=== PATIENT | female | born 1965 | race Caucasian/White ===

== ENCOUNTER → 2016-11-02 18:50 | Outpatient (CLI) | payer OTHER | END | disposition home or self-care (01) | LOC: D.MAMMO 13:00 | DX: Z12.31 Encounter for screening mammogram for malignant neoplasm of breast (principal) ==

== ENCOUNTER 2019-07-12 11:40 | Inpatient (IN) | payer BC ==
[~2019-07-12] VITALS: Ht 157.5 cm; Wt 75.0 kg
[2019-07-12 12:02] VITALS: BP 127/88
[2019-07-12 12:17] LABS: BASOPHILS 0.3 % (0-2); CALC OSMOLALITY 278 mosm/kg (275-300); CARBON DIOXIDE 28.1 mmol/L (21.0-32.0); CHLORIDE - SERUM 103 mmol/L (98-107); CREATININE - SERUM 0.9 mg/dL (0.6-1.3); EOSINOPHILS 1.3 % (0-7); GLUCOSE 98 mg/dL (74-106); HEMATOCRIT 41.9 % (36.0-48.0); HEMOGLOBIN 13.7 g/dL (12-16); IMMATURE GRANULOCYTES 1.4 % (0-5); LYMPHOCYTES 11.5 % (15-50); MCH 32.2 pg (26.0-34.0); MCHC 32.7 g/dL (31.0-37.0); MCV 98.4 fL (80.0-100.0); MEAN PLATELET VOLUME 8.4 fL (7.4-10.4); MONOCYTES 9.8 % (2-11); NEUTROPHILS 75.7 % (40-80); PLATELET COUNT 794 10x3/uL (130-400); POTASSIUM - SERUM 4.2 mmol/L (3.5-5.1); RBC 4.26 10x6/uL (4.00-5.40); RDW 12.5 % (11.5-14.5); SODIUM 140 mmol/L (136-145); UREA NITROGEN 13 mg/dL (7-18); eGFR NON AFRICAN AMERICAN 69 mL/min (90-120)
[2019-07-12 12:20] LABS: APTT 29.5 SECONDS (22.8-39.4); INR 0.97 (0.85-1.17); PROTIME 12.8 SECONDS (11.6-15.0)
[2019-07-12 12:34] LABS: ALBUMIN 3.1 g/dL (3.4-5.0); ALKALINE PHOSPHATASE 122 U/L (46-116); ALT (SGPT) 42 U/L (10-68); BILIRUBIN - TOTAL 0.15 mg/dL (0.2-1.3); CKMB 0.5 U/L (0.0-3.6); CREATINE KINASE 97 UL (21-215); PRO BNP 18 pg/mL (0-125); PROTEIN - SERUM 7.8 g/dL (6.4-8.2)
[2019-07-12 12:35] LABS: TROPONIN-I < 0.017 ng/mL (0.000-0.060)
--- NOTE | 2019-07-12 14:02 | NUR ---
BEFORE INITIATING ABXS CKD WITH LAB, NO BC'S DRAWN. SPOKE WITH ANKIT OWENS AND BC'S NEEDED. LAB NOTIFIED. ALSO NOTED ZOSYN 2.25 AND 3/375 ORDERED. VERIFIED WITH ANKIT OWENS AND ZOSYN 3.375 IS CORRECT IITIAL DOSE.
[2019-07-12 14:05] VITALS: BP 111/77
--- NOTE | 2019-07-12 14:21 | NUR ---
BC'S DRAWN X2 PER LAB THEN ZOSYN 3.375 INITIATED
[2019-07-12] MEDS ORDERED: FENOFIBRATE160 MG PO (14:57)
[2019-07-12] MEDS ORDERED: TRIAMTERENE-HC1 EAC3 PO (14:58)
[2019-07-12] MEDS ORDERED: PRAVACHOL20 MG PO (14:58)
--- NOTE | 2019-07-12 15:16 | NUR ---
REPORT CALLED TO JUAN RHODES
--- NOTE | 2019-07-12 15:23 | NUR ---
TRANSPORTED TO ROOM #1210 CONDITION STABLE
[2019-07-12 15:24] VITALS: BP 110/76
--- NOTE | 2019-07-12 15:29 | MORECARE ---
CASE MANAGEMENT DISCHARGE SUMMARY PATIENT: LG GA ROLANDO UNIT: [id number] ADM DATE: 07/12/19 AGE: 53 : 63 SEX: F ROOM/BED: D.1210 AUTHOR: CHILANGO CADET PHYSICIAN: REFERRING PHYSICIAN: EL CROUCH MD DATE OF SERVICE: 07/12/19 Discharge Plan Patient Name: LG GA [facility] [facility] 1965 Planned Disposition: Anticipated Discharge Date: Discharge Date: Expected LOS: Initial Reviewer: [email or web address] Initial Review Date: 07/12/2019 Generated: 07/12/19 4:29 pm DCPIA - Discharge Planning Initial Assessment Updated by [email or web address]: Dalia Leiva on 07/12/19 3:25 pm * Is the patient Alert and Oriented? Yes * PCP Telma Gonzalez * [facility] * Preadmission Environment Home with Family * ADLs Independent * Equipment None * Other Equipment NA * List name and contact numbers for known caregivers / representatives who currently or will assist patient after discharge: Mayco Ga (spouse) [phone] * Verbal permission to speak to the caregivers and representatives has been obtained from the patient. Yes * Community resources currently utilized None * Please name any agencies selected above. NA * Additional services required to return to the preadmission environment? No * Can the patient safely return to the preadmission environment? Yes * Has this patient been hospitalized within the prior 30 days at any hospital? No Patient Name: LG GA Page [id number] at 1529 All edits/amendments must be made on the electronic document DICTATION DATE: 07/12/19 1529 ANIMAL CARE TECHNICIAN: JORDEN 07/12/19 1529 RPT#: [id number] DC DATE: STATUS: ADM IN [facility] [address] [place] [address] END OF REPORT
--- NOTE | 2019-07-12 15:43 | MORECARE ---
CASE MANAGEMENT DISCHARGE SUMMARY PATIENT: LG GA UNIT: [id number] ADM DATE: 07/12/19 AGE: 53 : 63 SEX: F ROOM/BED: D.1210 AUTHOR: CHILANGO CADET PHYSICIAN: REFERRING PHYSICIAN: EL CROUCH MD DATE OF SERVICE: 07/12/19 Discharge Plan Patient Name: LG GA Facility: [facility]:[place] : 1965 Planned Disposition: Anticipated Discharge Date: Discharge Date: Expected LOS: Initial Reviewer: [email or web address] Initial Review Date: 07/12/2019 Generated: 07/12/19 4:43 pm DCP- Discharge Planning Updated by [email or web address]: Dalia Leiva on 07/12/19 2:[address] CM met with patient to discuss initial discharge planning. Patient is in agreement to proceed with the assessment with Mychal Ga (spouse) present. Verified patient's address and telephone number. Patient is alert/oriented. Stairs/steps: PCP: Dr. Leyva. Pharmacy: [facility]. Patient states they have been able to obtain all of their prescribed medications. Patient lives with spouse, Mychal. HHS: DME: Patient gives permission to speak with family members/care givers. Emergency contact: Mychal Ga (spouse) [phone] (home #). Patient is Independent with all ADL's, medication management. CM discussed the availability of HH, Rehab, DME services. Spouse states "she's going home tomorrow and will not need anything. Patient denies the need for additional services at this time and feels safe returning to previous environment. Patient denies being hospitalized within the past 30 days. 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 Transportation at time of discharge: Mychal Ga (spouse). CM will follow and assist with DC needs PRN. DCPIA - Discharge Planning Initial Assessment Updated by [email or web address]: Dalia Leiva on 07/12/19 3:25 pm * Is the patient Alert and Oriented? Yes * PCP Telma Gonzalez * Pharmacy [facility] * Preadmission Environment Home with Family * ADLs Independent * Equipment None * Other Equipment NA * List name and contact numbers for known caregivers / representatives who currently or will assist patient after discharge: Mayco Ga (spouse) [phone] * Verbal permission to speak to the caregivers and representatives has been obtained from the patient. Yes * Community resources currently utilized None * Please name any agencies selected above. NA * Additional services required to return to the preadmission environment? No * Can the patient safely return to the preadmission environment? Yes * Has this patient been hospitalized within the prior 30 days at any hospital? No Last DP export: 07/12/19 2:29 p Patient Name: LG GA Page [id number] at 1543 All edits/amendments must be made on the electronic document DICTATION DATE: 07/12/191542 CORPORATE STRATEGY ASSOCIATE: JORDEN 07/12/191542 RPT#: [id number] DC DATE: STATUS: ADM IN [facility] [address] [place] [address] END OF REPORT
[2019-07-12] MEDS ORDERED: HYDROCODON-ACE1 EA10 PO (15:46)
[2019-07-12 15:58] VITALS: BP 121/83; Ht 157.5 cm; Wt 75.0 kg
--- NOTE | 2019-07-12 19:50 | NUR ---
RECIEVED BEDSIDE REPORT. EVENING ROUNDS COMPLETED. VSS, NO S/S OF RT DISTRESS. RR EVEN AND UNLABORED. PT DENIES COUGH AT THIS TIME. EDUCATE PT ABOUT BREATHING TX. PT VOICED THANKS. PT DENIES ANY FURTHER NEEDS AT THIS TIME. WILL CPOC.
[2019-07-12 20:17] VITALS: BP 128/76
--- NOTE | 2019-07-12 22:00 | NUR ---
ANKIT CRAIG ORDERED MUCINEX AND TESSALON. CALLED AND NOTIFIED FUR DRESSER ABOUT NEW ORDER. AWAITING FUR DRESSER TO COME PULL MEDS. PT RESTING COMFORTABLY IN BED. WILL CTM.
[2019-07-13 00:34] VITALS: BP 119/84
--- NOTE | 2019-07-13 05:05 | NUR ---
UA AND FLU SWAB COLLECTED AND SENT TO LAB.
[2019-07-13 06:40] VITALS: BP 115/78
[2019-07-13 06:43] LABS: BASOPHILS 0.2 % (0-2); EOSINOPHILS 1.4 % (0-7); HEMATOCRIT 39.4 % (36.0-48.0); HEMOGLOBIN 12.9 g/dL (12-16); IMMATURE GRANULOCYTES 1.1 % (0-5); LYMPHOCYTES 16.6 % (15-50); MCH 32.3 pg (26.0-34.0); MCHC 32.7 g/dL (31.0-37.0); MCV 98.5 fL (80.0-100.0); MEAN PLATELET VOLUME 8.3 fL (7.4-10.4); MONOCYTES 9.1 % (2-11); NEUTROPHILS 71.6 % (40-80); PLATELET COUNT 756 10x3/uL (130-400); RDW 12.6 % (11.5-14.5)
[2019-07-13 07:00] LABS: WBC 11.8 10x3/uL (4.8-10.8)
[2019-07-13 07:05] LABS: CALC OSMOLALITY 279 mosm/kg (275-300); CALCIUM 9.2 mg/dL (8.5-10.1); CARBON DIOXIDE 27.2 mmol/L (21.0-32.0); CHLORIDE - SERUM 107 mmol/L (98-107); CREATININE - SERUM 0.7 mg/dL (0.6-1.3); GLUCOSE 105 mg/dL (74-106); PHOSPHOROUS 4.9 mg/dL (2.5-4.9); POTASSIUM - SERUM 3.9 mmol/L (3.5-5.1); SODIUM 141 mmol/L (136-145); UREA NITROGEN 11 mg/dL (7-18); eGFR NON AFRICAN AMERICAN > 90 mL/min (90-120)
--- NOTE | 2019-07-13 07:10 | NUR ---
REPORT RECEIVED FROM SINGING WAITER OR WAITRESS AND PATIENT CARE ASSUMED. PATIENT SITTING UP IN BED AWAKE, ALERT AND ORIENTED X 4. PATIENT IS STABLE AND VSS. WILL CONTINUE WITH PLAN OF CARE. SR UP X 2 BED IN LOW POSITION AND CALL LIGHT IN REACH.
[2019-07-13 07:21] VITALS: BP 122/82
[2019-07-13 07:46] LABS: APPEARANCE CLEAR (CLEAR); BILIRUBIN NEGATIVE (NEGATIVE); COLOR YELLOW (YELLOW); GLUCOSE NEGATIVE (NEGATIVE); KETONE NEGATIVE (NEGATIVE); NITRITE NEGATIVE (NEGATIVE); PROTEIN NEGATIVE (NEGATIVE); SPECIFIC GRAVITY 1.005 (1.005-1.020); UROBILINOGEN NORMAL (NORMAL)
[2019-07-13 10:44] VITALS: BP 114/74
--- NOTE | 2019-07-13 11:58 | NUR ---
PATIENT TOOK SHOWER AND BACK TO BED. PATIENT IS STABLE AND VSS. PATIENT DENIES ANY NEEDS OR PAIN. WILL CONTINUE TO MONITOR. SR UP X 2 BED IN LOW POSITION AND CALL LIGHT IN REACH.
[2019-07-13 14:39] VITALS: BP 113/75
--- NOTE | 2019-07-13 14:53 | NUR ---
PATIENT SITTING UP IN BED WATCHING TV AND VISITING WITH SPOUSE. PATIENT IS STABLE AND VSS. PATIENT DENIES ANY NEEDS OR PAIN. WILL CONTINUE TO MONITOR. SR UP X 2 BED IN LOW POSITION AND CALL LIGHT IN REACH.
--- NOTE | 2019-07-13 19:40 | NUR ---
LYING IN BED. ALERT AND ORIENTED X4. RESP EVEN AND NONLABORED. PROD COUGH WITH YELLOW SPUTUM NOTED. DENIES SOB. DENIES PAIN. AMBULATORY. NS @ 100 MLHR INFUSING IN RT FOREARM WITHOUT DIFF. NO EDEMA NOTED. NO DISTRESS. SR ELEVATED X2. CL IN REACH.
[2019-07-13 20:43] VITALS: BP 112/66
[2019-07-14 00:48] VITALS: BP 124/84
[2019-07-14 05:09] VITALS: BP 125/81
[2019-07-14 06:04] LABS: CALC OSMOLALITY 282 mosm/kg (275-300); CALCIUM 8.6 mg/dL (8.5-10.1); CARBON DIOXIDE 26.9 mmol/L (21.0-32.0); CHLORIDE - SERUM 109 mmol/L (98-107); CREATININE - SERUM 0.7 mg/dL (0.6-1.3); GLUCOSE 104 mg/dL (74-106); MAGNESIUM - SERUM 1.8 mg/dL (1.8-2.4); PHOSPHOROUS 4.7 mg/dL (2.5-4.9); POTASSIUM - SERUM 3.9 mmol/L (3.5-5.1); SODIUM 143 mmol/L (136-145); eGFR NON AFRICAN AMERICAN > 90 mL/min (90-120)
[2019-07-14 06:07] LABS: UREA NITROGEN 7 mg/dL (7-18)
[2019-07-14 07:16] LABS: BASOPHILS 0.2 % (0-2); EOSINOPHILS 1.8 % (0-7); HEMATOCRIT 36.9 % (36.0-48.0); HEMOGLOBIN 11.8 g/dL (12-16); IMMATURE GRANULOCYTES 0.8 % (0-5); LYMPHOCYTES 18.2 % (15-50); MCH 31.9 pg (26.0-34.0); MCV 99.7 fL (80.0-100.0); MEAN PLATELET VOLUME 8.3 fL (7.4-10.4); MONOCYTES 8.2 % (2-11); NEUTROPHILS 70.8 % (40-80); PLATELET COUNT 828 10x3/uL (130-400); RDW 12.8 % (11.5-14.5); WBC 12.1 10x3/uL (4.8-10.8)
[2019-07-14 08:03] VITALS: BP 122/79
--- NOTE | 2019-07-14 08:04 | NUR ---
AWAKE AND ALERT. ORIENTED X3. NO C/O AT THIS TIME. SITTING UP IN BED EATING BREAKFAST. LUNGS ARE CLEAR BUT DIMINISHED IN LOWER LOBES, PRODUCTIVE COUGH REPORTED. SKIN IS INTACT WITHOUT REDNESS. IV TO RIGHT FOREARM IS PATENT WITHOUT REDNESS AT INSERTION SITE. DENIES NEEDS.
--- NOTE | 2019-07-14 09:30 | NUR ---
ATE MOST OF BREAKFAST. SITTING UP IN CHIAR AT BEDSIDE. TOOK AM MEDS WITHOUT DIFFICUTLY. DENIES NEEDS.
[2019-07-14 11:42] VITALS: BP 108/76
[2019-07-14] MEDS ORDERED: AUGMENTIN 875-11 TAB PO (14:22)
--- NOTE | 2019-07-14 17:00 | NUR ---
SPOKE WITH [facility] RE PRESCRIPTIONS. NEW ORDERS TO CALL THEM IN RECEIVED. MEDS CALLED TO PHARMACY OF CHOICE. DISCHARGE INSTRUCTIONS GIVEN BOTH VERBALLY AND WRITTEN. ALL QUESTIONS ANSWERED. PATIENT AND VERBALIZED UNDERSTANDING OF SAME. IV TO RIGHT FOREARM D/C WITH CATHETER INTACT. ALL BELOINGINGS WITH PATIENT.
--- NOTE | 2019-07-15 18:07 | MORECARE ---
CASE MANAGEMENT DISCHARGE SUMMARY PATIENT: LG GA UNIT: [id number] ADM DATE: 07/12/19 AGE: 53 : 63 SEX: F ROOM/BED: D.1210 AUTHOR: CHILANGO CADET PHYSICIAN: REFERRING PHYSICIAN: EL CROUCH MD DATE OF SERVICE: 07/15/19 Discharge Plan Patient Name: LG GA Facility: [facility]:[place] : 1965 Planned Disposition: Anticipated Discharge Date: Discharge Date: 07/14/2019 Expected LOS: Initial Reviewer: [email or web address] Initial Review Date: 07/12/2019 Generated: 07/15/19 7:07 pm DCP- Discharge Planning Updated by [email or web address]: Dalia Leiva on 07/12/19 2:[address] CM met with patient to discuss initial discharge planning. Patient is in agreement to proceed with the assessment with Mychal Ga (spouse) present. Verified patient's address and telephone number. Patient is alert/oriented. Stairs/steps: PCP: Dr. Leyva. Pharmacy: [facility]. Patient states they have been able to obtain all of their prescribed medications. Patient lives with spouse, Mychal. HHS: DME: Patient gives permission to speak with family members/care givers. Emergency contact: Mychal Ga (spouse) [phone] (home #). Patient is Independent with all ADL's, medication management. CM discussed the availability of HH, Rehab, DME services. Spouse states "she's going home tomorrow and will not need anything. Patient denies the need for additional services at this time and feels safe returning to previous environment. Patient denies being hospitalized within the past 30 days. 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 Transportation at time of discharge: Mychal Ga (spouse). CM will follow and assist with DC needs PRN. DCPIA - Discharge Planning Initial Assessment Updated by [email or web address]: Dalia Leiva on 07/12/19 3:25 pm * Is the patient Alert and Oriented? Yes * PCP Telma Gonzalez * Pharmacy [facility] * Preadmission Environment Home with Family * ADLs Independent * Equipment None * Other Equipment NA * List name and contact numbers for known caregivers / representatives who currently or will assist patient after discharge: Mayco Ga (spouse) [phone] * Verbal permission to speak to the caregivers and representatives has been obtained from the patient. Yes * Community resources currently utilized None * Please name any agencies selected above. NA * Additional services required to return to the preadmission environment? No * Can the patient safely return to the preadmission environment? Yes * Has this patient been hospitalized within the prior 30 days at any hospital? No Last DP export: 07/12/19 2:43 p Patient Name: LG GA Page [phone] at 1807 All edits/amendments must be made on the electronic document DICTATION DATE: 07/15/191806 DISPLAYER MERCHANDISE: JORDEN 07/15/191806 RPT#: [id number] DC DATE:07/14/19 STATUS: DIS IN [facility] [address] [place] [address] END OF REPORT
== END 2019-07-14 17:00 | disposition home or self-care (01) | DRG 202 ==
LOC: D.ER 11:40 → D.M3 13:32
PROVIDERS: Family Medicine; ADMIT Internal Medicine Nephrology; ATTEND Internal Medicine Nephrology
DX: J20.9 Acute bronchitis, unspecified (principal); J18.9 Pneumonia, unspecified organism; F17.213 Nicotine dependence, cigarettes, with withdrawal; E78.5 Hyperlipidemia, unspecified